=== PATIENT | male | born 1970 | race Caucasian/White ===

== ENCOUNTER → 2016-10-19 | Outpatient (CLI) | payer OTHER | END | disposition home or self-care (01) | LOC: RAD.S 15:40 | DX: R07.89 Other chest pain (principal); R06.02 Shortness of breath; J98.4 Other disorders of lung ==

== ENCOUNTER → 2016-10-20 | Outpatient (CLI) | payer OTHER ==
--- NOTE | 2016-11-05 09:20 | SS ---
ADMIT: 10/20/2016 RM/LOC: [facility] MR#: [id number] [address] [id number] SARAH LEWIS [address] [place] [address] Sleep Study SEX: M AGE: 46 : 1970 STUDY DATE: 10/20/2016 CLINICAL HISTORY: This is a 46-year-old male, body mass of 34.1, 68 inches tall, 225 pounds, who has symptoms of hypersomnia, snoring, in the sleep lab for evaluation of obstructive sleep apnea. TECHNICAL DESCRIPTION: Diagnostic polysomnogram performed on night of 10/20/2016, attended by trained lead cytogenetic technologist. DIAGNOSTIC POLYSOMNOGRAM FINDINGS: SLEEP: Total time in bed is 395 minutes, total sleep time is 338.5 minutes, sleep efficiency is 85.7%. A 65.4% hours spent in stage II sleep, 20.8% hours spent in stage REM. BREATHING: No clear evidence of obstructive sleep apnea with apnea-hypopnea of 1.8. Few hypopneas seen in REM sleep with desaturations. Moderate to loud snoring was noted during the study. OXYGEN SATURATION: Mean sleeping oxygen is 90%, lowest oxygen is 83% in REM sleep. A 16.5% time was spent saturating 80% to 89%. CARDIAC: Average heart rate is 70 beats per minute. MOVEMENTS/POSITION: During the study, the patient slept in the supine lateral position with no significant leg movements. IMPRESSION/PLAN: 1. No clear evidence of obstructive sleep apnea with apnea-hypopnea of 1.8. Few hypopneas seen in REM sleep. 2. Sleep-related hypoxemia. Oxygen saturations were low especially in REM sleep even in absence of obstructive events. Possibly with hypoventilation or underlying pulmonary disease. 3. Moderate to loud snoring was noted during the study. RECOMMENDATIONS: Include: 1. ENT consultation may be considered for primary snoring. 2. No clear indication for CPAP therapy. 3. Clinical evaluation/pulmonary evaluation with chest imaging, arterial blood, and PFTs may be considered given low oxygen saturations at night, especially in REM sleep even in absence of obstructive events. Clinical correlation needed. Ike Camarena MD/ heraclio JOB #: [id number] CC: Esteban Blunt MD, Attending Physician Esteban Blunt MD, Family Physician
== END | disposition home or self-care (01) ==
LOC: RESC 19:49
DX: G47.00 Insomnia, unspecified (principal); G47.10 Hypersomnia, unspecified; R06.83 Snoring

== ENCOUNTER → 2016-11-10 | Outpatient (CLI) | payer OTHER | END | disposition home or self-care (01) | LOC: NUE 09:21 | DX: R63.4 Abnormal weight loss (principal); Z71.3 Dietary counseling and surveillance | CPT/HCPCS: 258 ==

== ENCOUNTER → 2016-11-18 | Outpatient (CLI) | payer OTHER | END | disposition home or self-care (01) | LOC: RAD.S 07:58 | DX: R07.9 Chest pain, unspecified (principal); F17.200 Nicotine dependence, unspecified, uncomplicated; J43.9 Emphysema, unspecified ==

== ENCOUNTER → 2016-11-24 | Outpatient (CLI) | payer OTHER | END | disposition home or self-care (01) | LOC: RESC 12:49 | DX: R07.9 Chest pain, unspecified (principal); F17.200 Nicotine dependence, unspecified, uncomplicated ==